=== PATIENT | male | born 1975 | race Caucasian/White ===

== ENCOUNTER 2018-05-28 16:14 | Emergency (ER) | payer SELFPAY ==
[2018-05-28 16:26] VITALS: BP 119/75
--- NOTE | 2018-05-28 17:00 | ED Physician Documentation ---
PD HPI HEENT - Stated complaint Stated Complaint: TOOTH PX - Chief complaint Chief Complaint: Heent - History obtained from History obtained from: Patient - History of Present Illness Timing - onset: Today Timing - details: Abrupt onset, Still present Location: Tooth (right lower tooth) Associated symptoms: Other (traveling from [place] and developed tooth pain.). No : Fever, Congestion, Swollen nodes, Facial swelling Recently seen: Not recently seen Review of Systems Constitutional: denies: Fever, Chills Nose: denies: Rhinorrhea / runny nose, Congestion Throat: reports: Dental pain / toothache. denies: Sore throat Cardiac: denies: Chest pain / pressure, Palpitations Respiratory: denies: Dyspnea, Cough PD PAST MEDICAL HISTORY - Past Medical History Cardiovascular: None Respiratory: None Neuro: None Endocrine/Autoimmune: None - Present Medications Home Medications: Ambulatory Orders Medication Instructions Recorded Confirmed Clindamycin [Cleocin] 150 mg PO TID #21 capsule 05/28/18 HYDROcod/ACETAM 5/325 [Woodward 5/325] 1 tab PO Q6H PRN #20 tablet 05/28/18 Ibuprofen [Motrin] 600 mg PO TID #30 tab 05/28/18 - Allergies Allergies/Adverse Reactions: Allergies Allergy/AdvReac Type Severity Reaction Status Date / Time naproxen Allergy Edema Verified 05/28/18 17:16 PD ED PE NORMAL - Vitals Vital signs reviewed: Yes - General General: Alert and oriented X 3, No acute distress, Well developed/nourished - HEENT HEENT: No: Dentition benign (significant decay. lower right teeth tender to percussion. No noted swelling of gum. ) - Neck Neck: Supple, no meningeal sign, No adenopathy - Cardiac Cardiac: RRR, No murmur - Respiratory Respiratory: Clear bilaterally Results - Vitals Vitals: Oxygen O2 Source Room air PD MEDICAL DECISION MAKING - ED course Complexity details: considered differential ([place] and developed [place] pain. ), d/w patient - Sepsis Event Vital Signs: Oxygen O2 Source Room air Departure - Departure Disposition: 01 Home, Self Care Clinical Impression: Dental infection, Dental caries Condition: Stable Record reviewed to determine appropriate education?: Yes Instructions: ED Tooth Pain Prescriptions: Clindamycin [Cleocin] 150 mg PO TID #21 capsule HYDROcod/ACETAM 5/325 [Woodward 5/325] 1 tab PO Q6H PRN #20 tablet PRN Reason: Pain Ibuprofen [Motrin] 600 mg PO TID #30 tab Discharge Date/Time: 05/28/18 17:33
[2018-05-28] MEDS ORDERED: IBUPROFEN 600 MG TABLET PO STA (17:19)
[2018-05-28] MEDS ORDERED: CLINDAMYCIN 150 MG CAPSULE PO STA (17:20)
[2018-05-28] MEDS ORDERED: ACETAMINOPHEN 325 MG TABLET PO STA (17:21)
== END 2018-05-28 17:33 | disposition home or self-care (01) ==
LOC: ED 16:14
DX: K04.7 Periapical abscess without sinus (principal); K02.9 Dental caries, unspecified
CPT/HCPCS: 99283; A9270

== ENCOUNTER 2018-09-17 09:05 | Emergency (ER) | payer MEDICAID ==
[2018-09-17 09:47] VITALS: BP 125/68
[2018-09-17] MEDS ORDERED: SUMAtriptan 25 MG TABLET PO STA (11:53)
--- NOTE | 2018-09-17 11:58 | ED Physician Documentation ---
PD HPI HEADACHE - Stated complaint Stated Complaint: MIGRAINE/NECK PX - Chief complaint Chief Complaint: Neuro - History obtained from History obtained from: Patient - History of Present Illness Timing - onset: Other (He has a long history of intermittent headaches. Gradual onset and frontal. Worse in the last week after moving up from [place]. He has some right neck stiffness but no central neck stiffness. No fevers or chills. He does have some rhinorrhea but no significant congestion. He is a family history of migraines but no personal history of a prior diagnosis of migraines, he is never had cranial imaging.) Review of Systems Constitutional: denies: Fever, Chills Eyes: reports: Decreased vision (chronic, wears contacts). denies: Loss of vision, Photophobia Ears: denies: Loss of hearing, Ear pain, Drainage/discharge Nose: reports: Rhinorrhea / runny nose. denies: Congestion Throat: denies: Oral lesions / sores, Sore throat PD PAST MEDICAL HISTORY - Past Medical History Past Medical History: Yes Cardiovascular: None Respiratory: None Neuro: Migraines Endocrine/Autoimmune: None - Past Surgical History Past Surgical History: No - Present Medications Home Medications: Ambulatory Orders Medication Instructions Recorded Confirmed Clindamycin [Cleocin] 150 mg PO TID #21 capsule 05/28/18 HYDROcod/ACETAM 5/325 [Stark 5/325] 1 tab PO Q6H PRN #20 tablet 05/28/18 Ibuprofen [Motrin] 600 mg PO TID #30 tab 05/28/18 Metoclopramide [Reglan] 10 mg PO Q6H PRN #15 tablet 09/17/18 Ondansetron Odt [Zofran] 4 mg TL Q6H PRN #10 tablet 09/17/18 SUMAtriptan [Imitrex] 25 mg PO BID PRN #10 tablet 09/17/18 - Allergies Allergies/Adverse Reactions: Allergies Allergy/AdvReac Type Severity Reaction Status Date / Time naproxen Allergy Edema Verified 05/28/18 17:16 - Social History Does the pt smoke?: No Smoking Status: Never smoker Does the pt drink ETOH?: No Does the pt have substance abuse?: No - Immunizations Immunizations are current?: Yes PD ED PE NORMAL - Vitals Vital signs reviewed: Yes - General General: Alert and oriented X 3, No acute distress - HEENT HEENT: PERRL, EOMI, Pharynx benign - Neck Neck: Supple, no meningeal sign, No bony TTP - Cardiac Cardiac: RRR, No murmur - Respiratory Respiratory: No respiratory distress, Clear bilaterally - Abdomen Abdomen: Non tender - Neuro Neuro: Alert and oriented X 3, 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 Imitrex is given. He was feeling significantly improved after Imitrex. Departure - Departure Disposition: 01 Home, Self Care Clinical Impression: Headache Qualifiers: Headache type: unspecified Headache chronicity pattern: acute headache Intractability: not intractable Qualified Code(s): R51 - Headache Condition: Good Record reviewed to determine appropriate education?: Yes Instructions: ED Cephalgia Unspecified Prescriptions: Metoclopramide [Reglan] 10 mg PO Q6H PRN #15 tablet PRN Reason: Nausea / Vomiting Ondansetron Odt [Zofran] 4 mg TL Q6H PRN #10 tablet PRN Reason: Nausea / Vomiting SUMAtriptan [Imitrex] 25 mg PO BID PRN #10 tablet PRN Reason: Headache Comments: Call your doctor to arrange a follow-up appointment, make the next available appointment. In the interim, return anytime if worse or if new symptoms develop .
--- NOTE | 2018-09-17 13:03 | CT Report ---
Reason: headache Procedure Date: 09/17/2018 Accession Number: [id number] / [id number] Procedure: CT - Head W/O CPT Code: FULL RESULT: EXAM: CT HEAD EXAM DATE: 09/17/2018 12:32 PM. CLINICAL HISTORY: Headache. COMPARISON: None. TECHNIQUE: Multiaxial CT images were obtained from the foramen magnum to the vertex. Reformats: Sagittal and coronal. IV contrast: None. In accordance with CT protocol optimization, one or more of the following dose reduction techniques were utilized for this exam: automated exposure control, adjustment of mA and/or KV based on patient size, or use of iterative reconstructive technique. FINDINGS: Parenchyma: No intraparenchymal hemorrhage. No evidence of mass, midline shift, or CT findings of infarction. Esteban-white differentiation is distinct. Extraaxial Spaces: Normal for age. No subdural or epidural collections identified. Ventricles: Normal in size and position. Sinuses and Orbits: Imaged paranasal sinuses, orbits, and mastoids show no significant abnormality. Bones: No evidence of fracture or calvarial defect. Other: None. IMPRESSION: No acute intracranial abnormality. RADIA
== END 2018-09-17 13:14 | disposition home or self-care (01) ==
LOC: ED 09:05
DX: R51 Headache (principal)
CPT/HCPCS: 70450; 99283; A9270

== ENCOUNTER 2018-09-23 11:20 | Emergency (ER) | payer MEDICAID ==
[2018-09-23 11:27] VITALS: BP 119/80
[2018-09-23] MEDS ORDERED: AMOXICILLIN 250 MG CAPSULE PO STA (11:37)
[2018-09-23] MEDS ORDERED: ACETAMINOPHEN 500 MG TABLET PO STA (11:38)
--- NOTE | 2018-09-23 11:41 | ED Physician Documentation ---
History of Present Illness - Stated complaint Stated Complaint: TOOTH PX - Chief complaint Chief Complaint: Heent - Additonal information Additional information: 43-year-old male who recently relocated to the area 1 week ago presents the [facility] department with dental pain. The patient reports pain in his right lower jaw. This is been intermittent for a significant amount of time. The patient is concerned that he may develop inflammation. No tongue swelling or difficulty swallowing. Symptoms are described as moderate. No improvement with [id number] management. No other associated symptoms. Review of Systems Constitutional: denies: Fever, Chills Ears: denies: Ear pain Nose: denies: Sinus pressure / pain Throat: reports: Dental pain / toothache. denies: Oral lesions / sores, Sore throat Skin: denies: Rash PD PAST MEDICAL HISTORY - Past Medical History Cardiovascular: None Respiratory: None Neuro: Migraines Endocrine/Autoimmune: None - Past Surgical History Past Surgical History: No - Present Medications Home Medications: Ambulatory Orders Medication Instructions Recorded Confirmed SUMAtriptan [Imitrex] 25 mg PO BID PRN #10 tablet 09/17/18 Amoxicillin 875 mg PO BID 10 Days #20 tablet 09/23/18 - Allergies Allergies/Adverse Reactions: Allergies Allergy/AdvReac Type Severity Reaction Status Date / Time naproxen Allergy Edema Verified 09/23/18 11:26 - Social History Does the pt smoke?: No Smoking Status: Never smoker Does the pt drink ETOH?: No Does the pt have substance abuse?: No - Immunizations Immunizations are current?: Yes PD ED PE NORMAL - General General: Alert and oriented X 3, No acute distress - HEENT HEENT: Atraumatic, PERRL, EOMI, Ears normal - Cardiac Cardiac: RRR - Respiratory Respiratory: No respiratory distress - Neuro Neuro: Alert and oriented X 3, Normal speech - Psych Psych: Normal affect PD ED PE EXPANDED - HEENT HEENT: Pharynx normal, Dental decay. No: Tonsillar exudate, Soft palate petecchiae, STATISTICS TUTOR, Dentition normal, Dental trauma, Dental abscess, Dry socket, Oral lesions / sores, Lip laceration, Tongue laceration, Buccal laceration (The patient has extensive dental decay, there is gingivitis. No abscess.) Results - Vitals Vitals: Vital Signs - 24 hr 09/23/18 11:25 Temperature 36.8 C Heart Rate 101 H Respiratory 16 Rate Blood Pressure 119/80 O2 Saturation 14 L Oxygen O2 Source Room air PD MEDICAL DECISION MAKING - ED course ED course: The patient has extensive dental decay, there is no acute abscess seen. There is no evidence of an acute peritonsillar abscess, Rene angina or a deep space infection on physical exam. The patient appears appropriate for discharge and ongoing outpatient management. I recommended that the patient follow-up with the dentist for further management of his extensive dental decay. The patient understands and agrees. I discussed warning signs and recommended returning to the emergency department immediately for any worsening or concerns. Departure - Departure Disposition: Home, Self Care Clinical Impression: Dental decay, Pain, dental Condition: Good Instructions: ED Tooth Pain Follow-Up: ELIAN SHEN [Physician No Access] - John Quijano DDS [Physician No Access] - CHELITA MANUEL DMD [Physician No Access] - Prescriptions: Amoxicillin 875 mg PO BID 10 Days #20 tablet Comments: Please follow-up with the dentist for further management of your dental related issues. Please return to the emergency department immediately for any worsening or any concerns.
== END 2018-09-23 11:55 | disposition home or self-care (01) ==
LOC: ED 11:20
DX: K02.9 Dental caries, unspecified (principal); K05.10 Chronic gingivitis, plaque induced; K08.89 Other specified disorders of teeth and supporting structures
CPT/HCPCS: 99283; A9270

== ENCOUNTER 2019-01-25 20:25 | Emergency (ER) | payer SELFPAY ==
[2019-01-25 20:32] VITALS: BP 118/79
[2019-01-25] MEDS ORDERED: BACITRACIN OINT TOP STA (21:33)
--- NOTE | 2019-01-25 21:36 | ED Physician Documentation ---
History of Present Illness - Stated complaint Stated Complaint: RT INGROWN TOENAIL - Chief complaint Chief Complaint: Ext Problem - History obtained from History obtained from: Patient - History of Present Illness Timing: How many weeks ago (4) Pain level max: 7 Pain level now: 7 Improved by: nothing Worsened by: palpation - Additonal information Additional information: ingrown R great toenail. started after dropping something heavy on his foot at work. Review of Systems Constitutional: denies: Fever Skin: denies: Rash PD PAST MEDICAL HISTORY - Past Medical History Cardiovascular: None Respiratory: None Neuro: Migraines Endocrine/Autoimmune: None - Past Surgical History Past Surgical History: No - Present Medications Home Medications: Ambulatory Orders Medication Instructions Recorded Confirmed No Known Home Medications 01/25/19 01/25/19 - Allergies Allergies/Adverse Reactions: Allergies Allergy/AdvReac Type Severity Reaction Status Date / Time naproxen Allergy Edema Verified 01/25/19 20:32 - Social History Does the pt smoke?: No Smoking Status: Never smoker Does the pt drink ETOH?: No Does the pt have substance abuse?: No - Immunizations Immunizations are current?: Yes PD ED PE NORMAL - Vitals Vital signs reviewed: Yes - General General: Alert and oriented X 3, No acute distress - Derm Derm: Warm and dry - Extremities Extremities: Other (R great toe - There is a new toenail growing underneath the old toenail pushing it vertically in the posterior aspect causing it to grow down into the distal toe itself.) - Neuro Neuro: Alert and oriented X 3 Results - Vitals Vitals: Vital Signs - 24 hr 01/25/19 20:29 Temperature 37.0 C Heart Rate 89 Respiratory 18 Rate Blood Pressure 118/79 O2 Saturation 100 Oxygen O2 Source Room air Procedures - General procedure General procedure: 43-year-old male with a right ingrown toenail. Digital block performed with 2% lidocaine. Excellent anesthesia achieved. The nail that is being moved by the new nail growing underneath it was removed. Tolerated very well. Bacitracin applied Xeroform and gauze. Will follow up with podiatry. Patient counseled regarding signs and symptoms for which I believe and urgent re-evaluation would be necessary. Patient with good understanding of and agreement to plan and is comfortable going home at this time This document was made in part using voice recognition software. While efforts are made to proofread this document, sound alike and grammatical errors may occur. Departure - Departure Disposition: 01 Home, Self Care Clinical Impression: Ingrown toenail of right foot Condition: Good Instructions: ED Ingrown Toenail Excised Follow-Up: your,doctor in 1 week [Other] Yeni Rivero DPM [Provider Admit Priv/Credential] - Within 1 week Jamal Bassett DPM [Physician No Access] - Comments: Soak the affected area twice a day. You should change your socks at least once during her shift at work. Return if you worsen. You need to follow-up with a load builder for further evaluation of your toes. Discharge Date/Time: 01/25/19 21:47
== END 2019-01-25 21:47 | disposition home or self-care (01) ==
LOC: ED 20:25
DX: L60.0 Ingrowing nail (principal)
CPT/HCPCS: 11730; 99282; 99283; A9270

== ENCOUNTER 2020-05-07 13:16 | Emergency (ER) | payer BC ==
[2020-05-07] MEDS ORDERED: LIDOCAINE 1% 2 ML VIAL MC ONE (14:32)
[2020-05-07] MEDS ORDERED: cefTRIAXone 1 GM VIAL IM STA (14:32)
--- NOTE | 2020-05-07 14:33 | ED Physician Documentation ---
History of Present Illness - Stated complaint Stated Complaint: MOUTH PX - Chief complaint Chief Complaint: Heent - History obtained from History obtained from: Patient - History of Present Illness Timing: How many days ago (3) Pain level max: 7 Pain level now: 4 - Additonal information Additional information: 44-year-old male presents to the emergency department with a painful right upper tooth and mild facial swelling for the past 2 to 3 days. Nothing makes it better or worse. Has not seen a dentist for this. No fevers. No drainage. Review of Systems Constitutional: denies: Fever, Chills GI: denies: Vomiting, Diarrhea Skin: denies: Rash PD PAST MEDICAL HISTORY - Past Medical History Cardiovascular: None Respiratory: None Neuro: Migraines Endocrine/Autoimmune: None - Past Surgical History Past Surgical History: No - Present Medications Home Medications: Ambulatory Orders Medication Instructions Recorded Confirmed Penicillin V Potassium 500 mg PO Q6HR #40 tablet 05/07/20 - Allergies Allergies/Adverse Reactions: Allergies Allergy/AdvReac Type Severity Reaction Status Date / Time naproxen Allergy Edema Verified 05/07/20 13:26 - Social History Does the pt smoke?: No Smoking Status: Never smoker Does the pt drink ETOH?: No Does the pt have substance abuse?: No - Immunizations Immunizations are current?: Yes PD ED PE NORMAL - Vitals Vital signs reviewed: Yes - General General: Alert and oriented X 3, No acute distress, Well developed/nourished - HEENT HEENT: Moist mucous membranes, Other (Poor dentition throughout, there is swelling over the right upper canine. No drainable abscess. No facial cellulitis. Normal phonation. No trismus. No drainable abscess.) - Neck Neck: Supple, no meningeal sign, No adenopathy - Cardiac Cardiac: RRR - Respiratory Respiratory: No respiratory distress, Clear bilaterally - Derm Derm: Warm and dry - Neuro Neuro: Alert and oriented X 3 Results - Vitals Vitals: Vital Signs - 24 hr 05/07/20 05/07/20 13:23 14:26 Temperature 35.5 C L 98.1 C H Heart Rate 74 86 Respiratory 16 20 Rate Blood Pressure 123/67 119/83 H O2 Saturation 100 100 Oxygen O2 Source Room air PD MEDICAL DECISION MAKING - ED course Complexity details: considered differential, d/w patient ED course: Patient with right upper dental infection. Given Rocephin IM and will place on penicillin. No drainable abscess at this time. No significant facial cellulitis. Patient will follow-up closely with his dentist. Patient counseled regarding signs and symptoms for which I believe and urgent re-evaluation would be necessary. Patient with good understanding of and agreement to plan and is comfortable going home at this time This document was made in part using voice recognition software. While efforts are made to proofread this document, sound alike and grammatical errors may occur. Departure - Departure Disposition: 01 Home, Self Care Clinical Impression: Dental infection Condition: Good Instructions: ED Tooth Pain Follow-Up: your,dentist this week [Other] Prescriptions: Penicillin V Potassium 500 mg PO Q6HR #40 tablet Comments: Take all antibiotics until gone. Return if you worsen. Follow-up with your doctor for further care.
[2020-05-07 14:43] VITALS: BP 119/83
== END 2020-05-07 15:04 | disposition home or self-care (01) ==
LOC: ED 13:16
DX: K04.7 Periapical abscess without sinus (principal)
CPT/HCPCS: 96372; 99283; 99284

== ENCOUNTER 2021-08-16 09:23 | Emergency (ER) | payer BC ==
[2021-08-16 09:47] VITALS: BP 130/70
[2021-08-16] MEDS ORDERED: LIDOCAINE 1% 2 ML VIAL SUBQ STA (10:29)
[2021-08-16] MEDS ORDERED: BUPIVACAINE 0.5% PF 10 ML VIAL SUBQ STA (10:30)
--- NOTE | 2021-08-16 11:27 | ED Physician Documentation ---
History of Present Illness - Stated complaint Stated Complaint: RT FT TOE INFECTION - Chief complaint Chief Complaint: Ext Problem - History obtained from History obtained from: Patient - History of Present Illness Timing: How many weeks ago (2) - Additonal information Additional information: 45-year-old male who has had both of his toes slammed by a pallet about 4 years ago has developed abnormal toenail growth to his great toes and on the right side he has some swelling and erythema consistent with ingrown toenail. Review of Systems Constitutional: denies: Fever Eyes: denies: Decreased vision Nose: denies: Congestion Throat: denies: Sore throat Respiratory: denies: Cough GI: denies: Vomiting PD PAST MEDICAL HISTORY - Past Medical History Cardiovascular: None Respiratory: None Neuro: Migraines Endocrine/Autoimmune: None - Past Surgical History Past Surgical History: No - Present Medications Home Medications: Ambulatory Orders Medication Instructions Recorded Confirmed No Known Home Medications 08/16/21 08/16/21 - Allergies Allergies/Adverse Reactions: Allergies Allergy/AdvReac Type Severity Reaction Status Date / Time naproxen Allergy Edema Verified 08/16/21 09:42 - Social History Does the pt smoke?: No Smoking Status: Never smoker Does the pt drink ETOH?: No Does the pt have substance abuse?: No - Immunizations Immunizations are current?: Yes PD ED PE NORMAL - Vitals Vital signs reviewed: Yes (normal ) - General General: Alert and oriented X 3, No acute distress, Well developed/nourished - HEENT HEENT: Atraumatic, PERRL, EOMI - Respiratory Respiratory: No respiratory distress - Derm Derm: Normal color, Warm and dry, No rash - Extremities Extremities: Normal ROM s pain, No edema, Other (There is a hyperkeritotic nail to the right great toe with redness and tenderness to the lateral aspect of the toe. 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 Nail removed with proximal nail bed appearing normal. - Regional nerve block Nerve block site: Digital - note digit(s) (right great toe) Right / left: Right Nerve block anesthesia: Lidocaine 1%, Marcaine 0.5% Nerve block aftercare: Excellent anesthesia, Patient tolerated well, No complications PD MEDICAL DECISION MAKING - ED course Complexity details: reviewed results, re-evaluated patient, considered differential, d/w patient ED course: 45-year-old male with an ingrown right great toenail has hyperkeratosis of the toenail and the entire nail was removed after a digital block is performed. Patient tolerates this well. Departure - Departure Disposition: 01 Home, Self Care Clinical Impression: Ingrown toenail of right foot Condition: Stable Instructions: ED Ingrown Toenail Excised Follow-Up: [facility] [Provider Group] Discharge Date/Time: 08/16/21 11:39
== END 2021-08-16 11:39 | disposition home or self-care (01) ==
LOC: ED 09:23
DX: L60.0 Ingrowing nail (principal); L85.9 Epidermal thickening, unspecified
CPT/HCPCS: 11730; 99282; 99283

== ENCOUNTER 2023-05-20 08:54 | Emergency (ER) | payer BC ==
[2023-05-20 09:11] VITALS: BP 122/77
--- NOTE | 2023-05-20 09:50 | ED Physician Documentation ---
PD HPI HEENT - Stated complaint Stated Complaint: RT TOOTH PX - Chief complaint Chief Complaint: Heent - History obtained from History obtained from: Patient - History of Present Illness Timing - onset: Last night Timing - duration: Hours Timing - details: Abrupt onset, Still present Location: Tooth Improves: Medication Worsens: Everything Associated symptoms: Headache. No: Fever, Congestion, Rhinorrhea, Trismus, Unable to swallow, Swollen nodes, Facial swelling, Cough Similar symptoms before: Diagnosis (bad tooth) Recently seen: Not recently seen - Additional information Additional information: 47-year-old Gustavo Byrd presents to the emergency department with pain and a lower tooth on the right side. He has 2 teeth that are bothering him and causing pain all the way along his jaw. He is missing most of his molars on that side. He has dentures on the top. He has a dentist in [place]. He has sensitivity to cold and hot and pain along his jaw. He has not had fever. He is not otherwise ill. Review of Systems Constitutional: denies: Fever Eyes: denies: Decreased vision Ears: denies: Ear pain Nose: denies: Congestion Throat: reports: Dental pain / toothache. denies: Oral lesions / sores, Sore throat Cardiac: denies: Chest pain / pressure Respiratory: denies: Dyspnea, Cough GI: denies: Abdominal Pain PD PAST MEDICAL HISTORY - Past Medical History Cardiovascular: None Respiratory: None Neuro: Migraines Endocrine/Autoimmune: None - Past Surgical History Past Surgical History: No - Present Medications Home Medications: Ambulatory Orders Medication Instructions Recorded Confirmed Amoxicillin 875 mg PO BID #14 tablet 05/20/23 - Allergies Allergies/Adverse Reactions: Allergies Allergy/AdvReac Type Severity Reaction Status Date / Time naproxen Allergy Edema Verified 05/20/23 09:08 - Social History Does the pt smoke?: No Smoking Status: Never smoker Does the pt drink ETOH?: No Does the pt have substance abuse?: No - Immunizations Immunizations are current?: Yes PD ED PE NORMAL - Vitals Vital signs reviewed: Yes (normal ) - General General: Alert and oriented X 3, No acute distress, Well developed/nourished - HEENT HEENT: Atraumatic, PERRL, EOMI, Other (broken teeth with sensitivity to heat/cold improves after covering with CAVIT. Right lower #27 &#28 .) - Neck Neck: Supple, no meningeal sign, No bony TTP - Respiratory Respiratory: No respiratory distress - Derm Derm: Normal color, Warm and dry, No rash - Extremities Extremities: No deformity, No edema - Neuro Neuro: Alert and oriented X 3, washcloth folder 2-12 intact, No motor deficit, No sensory deficit, Normal speech Eye Opening: Spontaneous Motor: Obeys Commands Verbal: Oriented GCS Score: 15 - Psych Psych: Normal mood, Normal affect Results - Vitals Vitals: Vital Signs - 24 hr 05/20/23 09:06 Temperature 36.4 C L Heart Rate 58 L Respiratory 14 Rate Blood Pressure 122/77 O2 Saturation 97 Oxygen O2 Source Room air PD Medical Decision Making - ED course Complexity details: considered differential, d/w patient ED course: 47-year-old male with broken teeth and sensitivity to heat and cold appears to have improvement with use of It. We will place the patient on some antibiotic I have dispensed CAVIT to the patient and he does have a dentist for follow-up with. Departure - Departure Disposition: 01 Home, Self Care Clinical Impression: Pain, dental Condition: Stable Instructions: ED Tooth Pain Follow-Up: Your, dentist [Other] Prescriptions: Amoxicillin 875 mg PO BID #14 tablet Comments: Gustavo it looks like you have exposed nerve roots on your teeth and the CAVIT we have dispensed to you should help with this. I have E [facility] to [facility] [place] and I recommend you follow-up with your dentist in this coming week.
== END 2023-05-20 10:00 | disposition home or self-care (01) ==
LOC: ED 08:54
DX: K08.89 Other specified disorders of teeth and supporting structures (principal)
CPT/HCPCS: 99282; 99283